=== PATIENT | female | born 1970 | race Caucasian/White ===

== ENCOUNTER → 2020-01-20 | Outpatient (CLI) | payer BC | LOC: MC.RAD 13:33 | DX: Z12.31 Encounter for screening mammogram for malignant neoplasm of breast (principal) ==

== ENCOUNTER → 2021-05-27 | Outpatient (CLI) | payer BC | LOC: MC.RAD 13:02 | DX: Z12.31 Encounter for screening mammogram for malignant neoplasm of breast (principal) ==

== ENCOUNTER → 2023-06-08 | Outpatient (CLI) | payer BC | LOC: MC.RAD 14:14 | DX: Z12.31 Encounter for screening mammogram for malignant neoplasm of breast (principal); N63.10 Unspecified lump in the right breast, unspecified quadrant ==

== ENCOUNTER → 2023-06-14 | Outpatient (CLI) | payer BC | LOC: MC.RAD 10:39 | DX: N60.01 Solitary cyst of right breast (principal) ==